=== PATIENT | male | born 1995 | race Two or more races ===

== ENCOUNTER 2018-10-13 14:15 | Emergency (ER) | payer OTHER ==
[~2018-10-13] VITALS: Ht 170.2 cm; Wt 74.8 kg
[2018-10-13 14:35] VITALS: BP 132/77
--- NOTE | 2018-10-13 14:35 | NUR ---
ED Nurse Note: Pt walked into ER c/o lower back pain 03/24 whcih he injured at work 6 days ago on Sunday. Pt AAO x4, remaining calm and cooperative with initial care. VS stable, verbalizing pain level without moaning or screaming.
--- NOTE | 2018-10-13 14:42 | Emergency Room Report ---
History of Present Illness General Chief Complaint: Lower Back Pain or Injury Source: Patient Present Illness HPI 23-year-old male patient presents the ER complaining of low back pain for the past 6 days. Patient reports that he slipped and fell while at work in the bathroom. 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 Reports has been using Advil and Salonopas patches for the past 6 days however the pain has been increasing in intensity. Denies pain rating down his legs. Denies hitting his head or loss consciousness. Denies bowel or bladder incontinence. Denies fever, chest pain, shortness of breath. Allergies: Coded Allergies: No Known Allergies (Unverified , 10/13/18) Patient History Past Medical History: see triage record Reviewed Nursing Documentation: PMH: Agreed; PSxH: Agreed Nursing Documentation-PMH Past Medical History: No Stated History Review of Systems All Other Systems: negative except mentioned in HPI Physical Exam Vital Signs Date Time Temp Pulse Resp B/P (MAP) Pulse Ox O2 Delivery O2 Flow Rate FiO2 10/13/18 14:26 98.4 76 18 132/77 98 Room Air Sp02 EP Interpretation: reviewed, normal General Appearance: well appearing, no apparent distress, alert, GCS 15, non- toxic Head: normocephalic, atraumatic Eyes: bilateral eye normal inspection, bilateral eye PERRL ENT: hearing grossly normal, normal pharynx, no angioedema, normal voice, uvula midline, moist mucus membranes Neck: full range of motion, no bony tend Respiratory: lungs clear, normal breath sounds, no rhonchi, no respiratory distress, no accessory muscle use, no wheezing, speaking full sentences Cardiovascular #1: regular rate, rhythm, no edema Musculoskeletal: back normal, digits/nails normal, gait/station normal, normal range of motion, other, tender - Tenderness over lower thoracic and lumbar spine , tenderness laterally, no bony depression Neurologic: alert, oriented x3, responsive, motor strength/tone normal, sensory intact, other - Straight leg raise positive on the right side Skin: no rash Medical Decision Making PA Attestation Dr. Garcia is my supervising Physician whom patient management has been discussed with. Diagnostic Impression: Primary Impression: Injury of low back ER Course Pt. presents to the ED s/p slip and fall complaining of lower back pain. Ddx considered but are not limited to fracture, sprain, strain, contusion. No evidence of incontinence, low suspicion for cauda equina syndrome. Vital signs: are WNL, pt. is afebrile Ordered imaging and pain medication. ER COURSE Provided with pain medication, lidocaine patch, and muscle relaxant. An X-ray of the thoracic spine shows no acute fractures per the preliminary reading. An X-ray of the lumbar spine shows no acute fractures per the preliminary reading. Likely contusion causing pain symptoms. Patient instructed on RICE method: rest, ice, compression, elevation. Patient instructed on rest, ice and heat for pain symptoms. Likely muscular pain. informed patient pain may worsen in days following accident. Workmen's Compensation paperwork completed. Followup with primary care provider for medical clearance to return to activities. Discuss referral to ortho/pain management/PT as needed. Discuss further imaging with MRI/CT as needed. Contact information for orthopedic urgent care provided, follow-up with urgent care if unable to followup with primary care provider and get referral to applied behavior science specialist. DISCHARGE: -Rx provided for Ibuprofen for pain symptoms. -Rx provided for Methocarbamol. SE drowsiness, do not drink, drive, or operate heavy machinery while using. -Rx provided for lidocaine patches. At this time pt. is stable for d/c to home. Patient resting comfortably, in no acute distress, nontoxic appearing. Will provide printed patient care instructions, and any necessary prescriptions. Patient advised on side effects of medications. Patient instructed to follow with primary care provider in 2-3 days and to request further orthopedic follow-up. Care plan and follow up instructions have been discussed with the patient prior to discharge. Patient instructed to rest and ice Take medications as directed. Patient questions asked and answered. ER precautions given, patient instructed to return to ER immediately for any new or worsening of symptoms including but not limited to chest pain, SOB, vision loss, abdominal pain, intractable vomiting. - Please note that this Emergency Department Report was dictated using [employer] technology software, occasionally this can lead to erroneous entry secondary to interpretation by the dictation equipment. Other X-Ray Diagnostic Results Other X-Ray Diagnostic Results #1: X-Ray ordered: lumbar spine # of Views/Limited Vs Complete: 3 View Indication: Pain EP Interpretation: Yes PA Xray: Interpretation reviewed, by supervising MD, and agrees with findings. Interpretation: no dislocation, no soft tissue swelling, no fractures Impression: No acute disease AMANDA Scribe Text Barry Coello PA-C Other X-Ray Diagnostic Results #2: X-Ray ordered: thoracic spine # of Views/Limited Vs Complete: 3 View Indication: Pain EP Interpretation: Yes PA Xray: Interpretation reviewed, by supervising MD, and agrees with findings. Interpretation: no dislocation, no soft tissue swelling, no fractures, nonspecific bowel gas Impression: No acute disease AMANDA Scribe Text Barry Coello PA-C Last Vital Signs Date Time Temp Pulse Resp B/P (MAP) Pulse Ox O2 Delivery O2 Flow Rate FiO2 10/13/18 14:26 98.4 76 18 132/77 98 Room Air Status: improved Disposition: HOME, SELF-CARE Condition: Stable Scripts Methocarbamol* (ROBAXIN*) 500 Mg Tablet 500 MG PO TID, #21 TAB 0 Refills Prov: Sukhjinder Coello 10/13/18 Ibuprofen* (MOTRIN*) 600 Mg Tablet 600 MG ORAL Q8H PRN for For Pain, #30 TAB 0 Refills Prov: Sukhjinder Coello 10/13/18 Lidocaine (Lidocaine) 1 Each Adh..patch 5 % TP DAILY for 7 Days, #7 PATCH Prov: Sukhjinder Coello 10/13/18 Patient Instructions: Back Pain, Adult, Contusion, [id number] Additional Instructions: Patient instructed to follow up with primary care provider 3-5 and discuss further referral and imaging at that time. Patient instructed on rest, ice and heat. Do not take muscle relaxant prior to drinking, driving, or operating heavy machinery. Take medications as directed. Patient questions asked and answered. ER precautions given, patient instructed to return to ER immediately for any new or worsening of symptoms. [facility] [address] [facility] [address] [facility], [address] [email or web address] Sukhjinder Coello Oct 13, 2018 14:42
[2018-10-13] MEDS ORDERED: Methocarbamol 500mg tab ORAL ONE (14:45)
[2018-10-13] MEDS ORDERED: Ketorolac 30mg Inj IM ONE (14:45)
[2018-10-13] MEDS ORDERED: ROBAXIN500 MG PO (15:46)
[2018-10-13] MEDS ORDERED: LIDOCAINE700 M1 TP (15:46)
[2018-10-13] MEDS ORDERED: IBUPROFEN600 MG ORAL (15:46)
[2018-10-13 15:57] VITALS: BP 111/75
--- NOTE | 2018-10-13 15:59 | NUR ---
ED Nurse Note: Pt received discharge instruction with prescriptions. Pt verbalized pain level 2/10 which was his goal. Pt demonstrated high level of understanding on instructions. Pt ambulated in stable condition.
--- NOTE | 2018-10-14 10:10 | Diagnostic Imaging Report ---
Indication: Back pain Technique: 2 views of the thoracic spine Comparison: none Findings: Bony alignment is normal. Vertebral body heights are preserved. Disc spaces are preserved. The pedicles are intact. No gross paraspinous mass Impression: Negative
--- NOTE | 2018-10-14 10:11 | Diagnostic Imaging Report ---
Indication: Back pain Technique: 3 views of the lumbar spine Comparison: None Findings: Bony alignment is normal. Vertebral body heights are preserved. The disc spaces are preserved. The pedicles are intact. Sacral arches are preserved. Sacroiliac joint spaces are preserved. Impression: Negative
== END 2018-10-13 16:00 | disposition home or self-care (01) ==
LOC: EMR 15:58
DX: S39.92XA Unspecified injury of lower back, initial encounter (principal); W01.0XXA Fall on same level from slipping, tripping and stumbling without subsequent striking against object, initial encounter; Y92.9 Unspecified place or not applicable; Y99.0 Civilian activity done for income or pay
CPT/HCPCS: 72020; 72070; 96372; 99283; J1885

== ENCOUNTER 2019-07-10 13:02 | Emergency (ER) | payer OTHER ==
[~2019-07-10] VITALS: Ht 170.2 cm; Wt 73.5 kg
[~2019-07-10 13:02] MED LIST: IBUPROFEN600 MG ORAL; LIDOCAINE700 M1 TP; ROBAXIN500 MG PO
[2019-07-10] MEDS ORDERED: PROPECIA1 MG PO (13:38)
--- NOTE | 2019-07-10 13:40 | NUR ---
ED Nurse Note: Patient walked into ED from home c/o syncopal episode x1 last night. patient reports he was sitting on his couch watching TV and lost unconsciousness for few seconds, when he regained consciousness, patient felt "heart racing, rapid breathing, palpiations" for 10 minutes. patient reports about 30 minutes after the first incident, he felt his arms are very heavy and dizziness "the room was spinning." patient is alert awake x4 ambulatory steady gait, breathing unlabored and even, speaking in full sentences at this time.
[2019-07-10 14:04] VITALS: BP 121/69
[2019-07-10 14:31] LABS: APPEARANCE,URINE CLEAR; BILIRUBIN, URINE NEGATIVE (NEGATIVE); COLOR,URINE PALE YELLOW; GLUCOSE, URINE (UA) NEGATIVE (NEGATIVE); KETONES,URINE NEGATIVE (NEGATIVE); LEUKOCYTE ESTERASE ,URINE NEGATIVE (NEGATIVE); NITRITE,URINE NEGATIVE (NEGATIVE); PH,URINE 7 (4.5-8.0); PROTEIN,URINE NEGATIVE (NEGATIVE); UROBILINOGEN,URINE NORMAL MG/DL (0.0-1.0)
[2019-07-10 14:34] LABS: BASOPHILS % (AUTO) 1.3 % (0.0-2.0); EOSINOPHILS % (AUTO) 0.7 % (0.0-3.0); HEMATOCRIT 46.8 % (42.0-52.0); HEMOGLOBIN 16.6 G/DL (14.2-18.0); MEAN CORPUSCULAR VOLUME 90 FL (80-99); MONOCYTES % (AUTO) 9.4 % (1.0-10.0); NEUTROPHILS % (AUTO) 60.7 % (45.0-75.0); PLATELET COUNT 189 K/UL (150-450); RED CELL DISTRIBUTION WIDTH 10.8 % (11.6-14.8); WHITE BLOOD COUNT 4.9 K/UL (4.8-10.8)
--- NOTE | 2019-07-10 14:44 | Diagnostic Imaging Report ---
Indication: Dyspnea Comparison: None A single view chest radiograph was obtained. Findings: Cardiomediastinal appearance is within normal limits for age. The lungs are clear. Pulmonary vascularity is appropriate. The diaphragmatic contour is smooth and costophrenic angles are sharp. No pleural effusions are identified. The bones are unremarkable. Impression: No acute findings
[2019-07-10 14:46] LABS: ANION GAP 9 mmol/L (5-15); BLOOD UREA NITROGEN 18 mg/dL (7-18); CALCIUM 9.1 MG/DL (8.5-10.1); CARBON DIOXIDE 28 MMOL/L (21-32); CHLORIDE 106 MMOL/L (98-107); POTASSIUM 3.8 MMOL/L (3.5-5.1); SODIUM 143 MMOL/L (136-145)
[2019-07-10 15:01] LABS: CREATINE KINASE 158 U/L (26-308)
[2019-07-10 15:07] LABS: ALANINE AMINOTRANSFERASE 55 U/L (12-78); ALBUMIN 4.6 G/DL (3.4-5.0); ALBUMIN/GLOBULIN RATIO 1.4 (1.0-2.7); ALKALINE PHOSPHATASE 88 U/L (46-116); ASPARTATE AMINO TRANSFERASE 28 U/L (15-37); BILIRUBIN,TOTAL 1.6 MG/DL (0.2-1.0)
--- NOTE | 2019-07-10 15:07 | Diagnostic Imaging Report ---
Indication: Syncope Technique: Contiguous 5 mm thick transaxial imaging of the head obtained in a Siemens Sensation [address] scanner. Soft tissue and bone windows generated. Automatic Exposure Control was utilized. Total Dose length Product (DLP): [address] Dose Index Volume (CTDIvol): 67 mGy Comparison: none Findings: The size and configuration of the cortical sulci, basal cisterns, and ventricles are within normal limits for age. There is no mass effect, midline shift, or edema identified. There is no evidence of acute hemorrhage or abnormal intra-axial or extra-axial fluid collections. The bones and soft tissues are unremarkable. Impression: No mass effect, edema or acute bleed. The CT scanner at [facility] is accredited by the [employer] and the scans are performed using dose optimization techniques as appropriate to a performed exam including Automatic Exposure control.
[2019-07-10 15:09] LABS: BILIRUBIN,DIRECT 0.2 MG/DL (0.0-0.3)
--- NOTE | 2019-07-10 15:28 | Emergency Room Report ---
History of Present Illness General Chief Complaint: Syncope Source: Patient (Whitney Sow) Present Illness HPI 24-year-old male with no significant past medical history here complaining of a syncopal episode that happened yesterday. Patient reported he was sitting at home comfortably watching TV without any exertion prior to sitting. Patient started feeling faint and reports that he lost consciousness for a few moments. Patient brother was witnessing the situation and reports that patient did not fall or injure his head. Patient reports that it happened again few minutes later proceeding with continuous palpitations throughout the night. Patient denies any chest pain, shortness of breath, blurred vision, fever and chills. Reports that he went to his primary care physician today for physical exam and was told to come to the emergency room if he has had continuous palpitation. Denies history of anxiety, drug use, tobacco smoke and alcohol intake. Denies history of anxiety and depression. Patient reports in the past few days he has been noticing small amount of fresh blood on toilet paper after defecation. Denies any external hemorrhoids. Denies gross hematuria. Denies other urinary symptoms, nausea vomiting abdominal pain. Denies start of new medication however reports that he works out on a daily basis and uses protein powder prior to workout. Patient reports that he tries to keep hydrated however did not hydrate enough yesterday. Denies any recent URI symptoms, diarrhea constipation. Patient reports that prior to his near syncopal episode he did not have any episodes of straining. (Whitney Sow) Allergies: Coded Allergies: No Known Allergies (Unverified , 10/13/18) Patient History Past Medical History: see triage record Past Surgical History: unable to obtain Pertinent Family History: none Immunizations: UTD Reviewed Nursing Documentation: PMH: Agreed; PSxH: Agreed (Whitney Sow) Nursing Documentation-PMH Past Medical History: No Stated History (Whitney Sow) Review of Systems All Other Systems: negative except mentioned in HPI (Whitney Sow) Physical Exam Vital Signs Date Time Temp Pulse Resp B/P (MAP) Pulse Ox O2 Delivery O2 Flow Rate FiO2 07/10/19 13:31 98.4 74 16 103/61 (75) 97 Room Air Sp02 EP Interpretation: reviewed, normal General Appearance: no apparent distress, alert, GCS 15, non-toxic Head: normocephalic, atraumatic Eyes: bilateral eye normal inspection, bilateral eye PERRL ENT: hearing grossly normal, normal pharynx, no angioedema, normal voice Neck: full range of motion, supple, thyroid normal, no carotid bruits, supple/ symm/no masses Respiratory: chest non-tender, lungs clear, normal breath sounds, no rhonchi, no wheezing, speaking full sentences Cardiovascular #1: regular rate, rhythm, no edema, no murmur, normal capillary refill Cardiovascular #2: 2+ carotid (R), 2+ carotid (L), 2+ radial (R), 2+ radial (L) , 2+ dorsalis pedis (R), 2+ dorsalis pedis (L) Gastrointestinal: normal bowel sounds, non tender, soft, no mass, no organomegaly, no peritonitis, non-distended, no guarding, no rebound Rectal: deferred Genitourinary: normal inspection, no CVA tenderness Musculoskeletal: back normal, gait/station normal, normal range of motion, non- tender, no calf tenderness Neurologic: alert, oriented x3, responsive, motor strength/tone normal, sensory intact, speech normal Psychiatric: judgement/insight normal, memory normal, mood/affect normal, no suicidal/homicidal ideation Skin: no rash Lymphatic: no adenopathy (Whitney Sow) Medical Decision Making PA Attestation All my diagnosis and treatment plans were reviewed ad discussed with my supervising physician Dr. Snider (Whitney Sow) Diagnostic Impression: Primary Impression: Syncope Additional Impression: Incomplete RBBB ER Course 24-year-old male with no significant past medical history here complaining of a syncopal episode that happened yesterday. Patient reported he was sitting at home comfortably watching TV without any exertion prior to sitting. Patient started feeling faint and reports that he lost consciousness for a few moments. Patient brother was witnessing the situation and reports that patient did not fall or injure his head. Patient reports that it happened again few minutes later proceeding with continuous palpitations throughout the night. Patient denies any chest pain, shortness of breath, blurred vision, fever and chills. Reports that he went to his primary care physician today for physical exam and was told to come to the emergency room if he has had continuous palpitation. Denies history of anxiety, drug use, tobacco smoke and alcohol intake. Denies history of anxiety and depression. Patient reports in the past few days he has been noticing small amount of fresh blood on toilet paper after defecation. Denies any external hemorrhoids. Denies gross hematuria. Denies other urinary symptoms, nausea vomiting abdominal pain. Denies start of new medication however reports that he works out on a daily basis and uses protein powder prior to workout. Patient reports that he tries to keep hydrated however did not hydrate enough yesterday. Denies any recent URI symptoms, diarrhea constipation. Patient reports that prior to his near syncopal episode he did not have any episodes of straining. Ddx considered but are not limited to: Dizziness due to alcohol intoxication, dizziness unspecified, dizziness due to head trauma, dizziness secondary to cardiac reasons, syncope presumed cardiac, syncope presumed cerebral, vasovagal syncope, electrolyte abnormality Vital signs: are WNL, pt. is afebrile H&PE are most consistent with: Vasovagal syncope ORDERS: CBC, CMP, UA, tox screen, alcohol serum levels, head CT scan chest x-ray , EKG, CK, troponin, meclizine ER intervention: NS bolus DISCHARGE: At this time pt. is stable for d/c to home. Will provide printed patient care instructions, and any necessary prescriptions. Care plan and follow up instructions have been discussed with the patient prior to discharge. Follow-up with your primary care provider if your symptoms continue increase oral hydration if worsening symptoms return to the emergency room (Whitney Sow) EKG Diagnostic Results Rate: normal Rhythm: NSR ST Segments: no acute changes Other Impression no acute ST changes (Whitney Sow) Rate: normal Rhythm: NSR ST Segments: other - incomplete RBBB (Gavin Snider MD) Chest X-Ray Diagnostic Results Chest X-Ray Diagnostic Results : Chest X-Ray Ordered: Yes # of Views/Limited/Complete: 1 View Indication: Other EP Interpretation: Yes PA Xray: Interpretation reviewed, by supervising MD, and agrees with findings. Interpretation: no consolidation, no effusion, no pneumothorax Impression: No acute disease Electronically Signed by: Whitney Mcdonough PA-C (Whitney Sow) CT/MRI/US Diagnostic Results CT/MRI/US Diagnostic Results : Imaging Test Ordered: Head CT no contrast Impression No intracranial hemorrhage, no other abnormalities noted (Whitney Sow) Last Vital Signs Date Time Temp Pulse Resp B/P (MAP) Pulse Ox O2 Delivery O2 Flow Rate FiO2 07/10/19 14:04 98.4 64 16 121/69 100 Room Air (Whitney Sow) Status: improved (Gavin Snider MD) Disposition: HOME, SELF-CARE Condition: Stable Scripts Meclizine Hcl* (MECLIZINE*) 25 Mg Tablet 25 MG ORAL THREE TIMES A DAY for 3 Days, #10 TAB Prov: Whitney Sow 07/10/19 Referrals: NON PHYSICIAN (PCP) Patient Instructions: Syncope Additional Instructions: Take your medication as directed increase oral hydration follow-up with your primary care provider if worsening symptoms return to the emergency room Whitney Sow Jul 10, 2019 15:28 Gavin Snider MD Jul 14, 2019 13:48
[2019-07-10] MEDS ORDERED: MECLIZINE HCL25 MG ORAL (15:37)
[2019-07-10 15:43] VITALS: BP 125/72
--- NOTE | 2019-07-10 15:52 | NUR ---
ER DISCHARGE NOTE: Patient is cleared to be discharged per GABRIEL MOREL, pt is aox4, on room air, with stable vital signs. pt was given dc and prescription instructions, pt was able to verbalize understanding, pt id band and iv site removed without complications. pt is able to ambulate with steady gait. pt took all belongings.
--- NOTE | 2019-07-13 15:23 | Cardiology Report ---
APPROVED REPORT EKG Measurement Heart [id number] Normal sinus rhythm Incomplete right bundle branch block Borderline ECG
--- NOTE | 2019-07-13 15:23 | Cardiology Report ---
APPROVED REPORT EKG Measurement Heart [id number] Normal sinus rhythm Incomplete right bundle branch block Borderline ECG
== END 2019-07-10 15:52 | disposition home or self-care (01) ==
LOC: EMR 13:59
DX: R55 Syncope and collapse (principal); R06.02 Shortness of breath
CPT/HCPCS: 36415; 70450; 71045; 80053; 80307; 81001; 82248; 82550; 84484; 85025; 93005; 96360; 99284; G0480; 80329